=== PATIENT | female | born 1975 | race Caucasian/White ===

== ENCOUNTER 2019-03-15 10:42 | Emergency (ER) | payer OTHER ==
[~2019-03-15] VITALS: Ht 147.3 cm; Wt 70.3 kg
[2019-03-15] MEDS ORDERED: LISINOPRIL-HCT1 EAC2 PO (10:59)
[2019-03-15] MEDS ORDERED: CELEXA20 MG PO (10:59)
[2019-03-15] MEDS ORDERED: HYDROCODON-ACE1 EAC7 PO (11:01)
[2019-03-15 11:31] LABS: HEMATOCRIT 47.8 % (37.0-47.0); HEMOGLOBIN 16.2 gm/dL (12.0-15.0); MCH 31.2 pg (26.0-34.0); MCHC 33.9 g/dL (28.0-37.0); MPV 8.1 fl. (7.2-11.1); NUCLEATED RBCS 0 /100WBC; PLATELET COUNT* 432 thou/uL (150-400); RDW-CV 12.4 % (10.5-14.5); WBC 23.2 thou/uL (4.0-11.0)
[2019-03-15 11:35] LABS: CALCIUM 9.1 mg/dL (8.5-10.1); CREATININE 0.9 mg/dL (0.6-1.3); POTASSIUM 3.6 mmol/L (3.5-5.1)
[2019-03-15 11:39] LABS: URINE BILIRUBIN NEGATIVE (Negative); URINE BLOOD 2+ (Negative); URINE CLARITY CLEAR; URINE COLOR YELLOW; URINE GLUCOSE-RANDOM NEGATIVE (Negative); URINE KETONES 2+ (Negative); URINE LEUKOCYTES-REFLEX NEGATIVE (Negative); URINE NITRITE-REFLEX NEGATIVE (Negative); URINE PROTEIN 2+ (Negative); URINE SPECIFIC GRAVITY 1.025 (1.005-1.030); URINE UROBILINOGEN 0.2 E.U./dl (0.2-1.0)
[2019-03-15 11:39] LABS: ALBUMIN 3.9 g/dL (3.4-5.0); TOTAL BILIRUBIN 0.6 mg/dL (<0.1-1.0); TOTAL PROTEIN 8.7 g/dL (6.4-8.2)
[2019-03-15 12:02] LABS: MUCUS >6 Heavy strn/LPF (None Seen); SQUAMOUS >10 Many /LPF (0-3)
[2019-03-15 12:03] LABS: HYALINE CASTS 0-3 Few /LPF (None Seen)
[2019-03-15 12:04] LABS: URINE RBC 0-2 Rare /HPF (0-2); URINE WBC-REFLEX 0-5 Rare /HPF (0-5)
[2019-03-15 12:05] LABS: BACTERIA-REFLEX 1-9 Few /HPF (None Seen)
[2019-03-15 12:06] LABS: CRYSTALS None Seen /LPF (None Seen)
[2019-03-15 12:17] LABS: ABSOLUTE LYMPHOCYTES 0.2 thou/uL (0.8-5.3); ABSOLUTE MONOCYTES 0.7 thou/uL (0.0-1.2); ABSOLUTE NEUTROPHILS 22.3 thou/uL (1.6-8.1)
[2019-03-15 12:18] LABS: LARGE PLATELETS RARE; PLATELET ESTIMATE INCREASED
[2019-03-15] MEDS ORDERED: AUGMENTIN 875-1 EACH PO (13:37)
[2019-03-15] MEDS ORDERED: ONDANSETRON HCL4 M2 PO (13:37)
[2019-03-15] MEDS ORDERED: LEVAQUIN 500 M500 M2 PO (13:50)
[2019-03-15 14:16] VITALS: BP 131/90
== END 2019-03-15 14:16 | disposition left against medical advice (07) ==
LOC: M.ERS 10:42
PROVIDERS: Nurse Practitioner Family
DX: R19.7 Diarrhea, unspecified (principal); R11.2 Nausea with vomiting, unspecified; D72.829 Elevated white blood cell count, unspecified; R74.0 Nonspecific elevation of levels of transaminase and lactic acid dehydrogenase [LDH]; I10 Essential (primary) hypertension; Z91.09 Other allergy status, other than to drugs and biological substances

== ENCOUNTER 2019-07-29 09:49 | Emergency (ER) | payer OTHER ==
[~2019-07-29] VITALS: Ht 149.9 cm; Wt 74.8 kg
[~2019-07-29 09:49] MED LIST: AUGMENTIN 875-1 EACH PO; CELEXA20 MG PO; HYDROCODON-ACE1 EAC7 PO; LEVAQUIN 500 M500 M2 PO; LISINOPRIL-HCT1 EAC2 PO; ONDANSETRON HCL4 M2 PO
[2019-07-29] MEDS ORDERED: ESCITALOPRA5 MG/5 ML PO (10:02)
[2019-07-29] MEDS ORDERED: LEXAPRO 10 MG T10 M1 PO (10:03)
[2019-07-29 10:19] VITALS: BP 138/96
== END 2019-07-29 10:20 | disposition home or self-care (01) ==
LOC: M.ERS 09:49
DX: S31.41XA Laceration without foreign body of vagina and vulva, initial encounter (principal); Z88.8 Allergy status to other drugs, medicaments and biological substances; Y27.2XXA Contact with hot fluids, undetermined intent, initial encounter; Y93.89 Activity, other specified; Y92.89 Other specified places as the place of occurrence of the external cause; Y99.8 Other external cause status

== ENCOUNTER 2020-07-04 15:03 | Emergency (ER) | payer OTHER ==
[~2020-07-04] VITALS: Ht 149.9 cm; Wt 72.6 kg
[~2020-07-04 15:03] MED LIST changes: +ESCITALOPRA5 MG/5 ML PO; +LEXAPRO 10 MG T10 M1 PO
[2020-07-04 15:27] LABS: URINE BILIRUBIN NEGATIVE (Negative); URINE BLOOD 2+ (Negative); URINE CLARITY CLEAR; URINE COLOR YELLOW; URINE GLUCOSE-RANDOM NEGATIVE (Negative); URINE KETONES TRACE (Negative); URINE LEUKOCYTES-REFLEX NEGATIVE (Negative); URINE NITRITE-REFLEX NEGATIVE (Negative); URINE PROTEIN 1+ (Negative); URINE UROBILINOGEN 0.2 E.U./dl (0.2-1.0)
[2020-07-04 15:36] LABS: SQUAMOUS >10 Many /LPF (0-3)
[2020-07-04 15:37] LABS: ABSOLUTE BASOPHILS 0.1 thou/uL (0.0-0.2); ABSOLUTE EOSINOPHILS 0.1 thou/uL (0.0-0.7); ABSOLUTE LYMPHOCYTES 1.7 thou/uL (0.8-5.3); ABSOLUTE MONOCYTES 1.3 thou/uL (0.0-1.2); BASOPHILS 0.5 %; EOSINOPHILS 0.5 %; HEMATOCRIT 42.4 % (37.0-47.0); HEMOGLOBIN 14.9 gm/dL (12.0-15.0); LYMPHOCYTES 9.3 %; MCH 31.8 pg (26.0-34.0); MCHC 35.1 g/dL (28.0-37.0); MCV 90.6 fL (80.0-100.0); MONOCYTES 7.1 %; MPV 7.9 fl. (7.2-11.1); NUCLEATED RBCS 0 /100WBC; PLATELET COUNT* 336 thou/uL (150-400); POLYS 82.6 %; RBC 4.69 mil/uL (4.20-5.00); RDW-CV 12.3 % (10.5-14.5); WBC 18.2 thou/uL (4.0-11.0)
[2020-07-04 15:37] LABS: BACTERIA-REFLEX None Seen /HPF (None Seen); FINE GRANULAR CASTS 0-3 Few /LPF (None Seen); HYALINE CASTS 0-3 Few /LPF (None Seen); URINE RBC 0-2 Rare /HPF (0-2); URINE WBC-REFLEX 0-5 Rare /HPF (0-5); WBC CASTS 0-3 /LPF
[2020-07-04 15:38] LABS: CRYSTALS None Seen /LPF (None Seen)
[2020-07-04 15:44] LABS: CREATININE 0.7 mg/dL (0.6-1.3); POTASSIUM 3.6 mmol/L (3.5-5.1)
[2020-07-04 15:49] LABS: TOTAL BILIRUBIN 0.7 mg/dL (<0.1-1.0); TOTAL PROTEIN 8.5 g/dL (6.4-8.2)
[2020-07-04] MEDS ORDERED: NORCO 5-325 TA1 EAC2 PO (16:44)
[2020-07-04] MEDS ORDERED: CIPRO500 MG PO (16:44)
[2020-07-04] MEDS ORDERED: FLAGYL500 M1 PO (16:44)
[2020-07-04 16:55] VITALS: BP 129/86
== END 2020-07-04 16:55 | disposition home or self-care (01) ==
LOC: M.ERS 15:03
PROVIDERS: Physician Assistant
DX: K57.32 Diverticulitis of large intestine without perforation or abscess without bleeding (principal); I10 Essential (primary) hypertension; Z79.899 Other long term (current) drug therapy